=== PATIENT | female | born 1950 | race Caucasian/White ===

== ENCOUNTER 2024-01-27 06:09 | Inpatient (IN) | payer OTHER ==
[~2024-01-27] VITALS: Ht 160 cm; Wt 101.2 kg
[~2024-01-27 06:09] MED LIST: AMLO1TAB22 PO; ATOR10TA PO; PANT40TA2 PO
[2024-01-27] MEDS ORDERED: PROPOFOL 10 MG/ML 20 ML IV ONE (06:54)
[2024-01-27] MEDS ORDERED: ROCURONIUM 10MG/ML 10ML VIAL IV ONE (06:56)
[2024-01-27] MEDS: CELECOXIB 100 MG CAP PO ONE (07:10)
[2024-01-27] MEDS: ACETAMINOPHEN IV 1000 MG/100ML (10MG/ML) IV ONE (07:10)
[2024-01-27] MEDS: PREGABALIN CAPSULE 75 MG CAP PO ONE (07:10)
[2024-01-27] MEDS ORDERED: MIDAZOLAM HCL 2MG/2ML 2ml VIAL (1mg/ml) ONE (07:44)
[2024-01-27] MEDS ORDERED: ONDANSETRON HCL 4 MG/2 ML VIAL IV ONE (07:45)
[2024-01-27] MEDS ORDERED: NALOXONE HCL 0.4 MG/ML VIAL IV PRN (07:45)
[2024-01-27] MEDS ORDERED: MORPHINE SULFATE 4 MG/ML SYR/VIAL IV PRN ×2 (07:45)
[2024-01-27] MEDS ORDERED: ePHEDrine SULFATE 50 MG/ML AMP IV PRN (07:45)
[2024-01-27] MEDS: BUPIVACAINE 0.25% INJ 50ML VIAL ONE (07:57)
[2024-01-27] MEDS: VANCOMYCIN HCL 1000 MG VL ONE (07:57)
[2024-01-27] MEDS: MORPHINE SULF PF 5 MG/10 ML VIAL ONE (07:57)
[2024-01-27] MEDS: KETOROLAC TROMETH 30 MG/ML 1ML VIAL ONE (07:57)
[2024-01-27] MEDS ORDERED: LIDOCAINE HCL 100 MG/5ML (2%) SYRG INJ IV ONE (08:06)
[2024-01-27] MEDS: CEFEPIME 1GM/ 50ML 50 ML IV ONE (08:20)
[2024-01-27] MEDS: ceFAZolin 2 GM/D5W100ml 100 ML IV ONE (08:30)
[2024-01-27] MEDS ORDERED: HYDROmorphone HCL 2 MG/ML VL/or syr ONE (08:30)
[2024-01-27] MEDS: TRANEXAMIC ACID 20 ML ONE (08:35)
[2024-01-27] MEDS ORDERED: DexAMETHasone SOD PHOS 10MG/1ML VIAL INJ ONE (08:45)
[2024-01-27] MEDS ORDERED: SUGAMMADEX 200mg/2ml Vial (100MG/ML) IV ONE ×2 (08:45→09:41)
[2024-01-27] MEDS ORDERED: KETOROLAC TROMETH 30 MG/ML 1ML VIAL ONE (08:45)
[2024-01-27] MEDS ORDERED: ONDANSETRON HCL 4 MG/2 ML VIAL ONE (08:45)
[2024-01-27] MEDS ORDERED: HYDROmorphone HCL 2 MG/ML VL/or syr IV PRN (09:30)
[2024-01-27] MEDS ORDERED: NITROGLYCERIN 0.4 MG SL TAB SL PRN (09:30)
[2024-01-27] MEDS ORDERED: LACTATED RINGER'S 1,000 ML IV SCH (09:30)
[2024-01-27] MEDS ORDERED: ONDANSETRON HCL 4 MG/2 ML VIAL IV PRN (09:30)
[2024-01-27] MEDS ORDERED: MORPHINE SULFATE INJ 2 MG/ml SYRG IV PRN (09:30)
[2024-01-27] MEDS ORDERED: ceFAZolin 1GM/50ML 50 ML IV SCH (09:30)
[2024-01-27] MEDS: DOCUSATE SOD 100 MG CAP PO SCH (10:00)
[2024-01-27] MEDS ORDERED: PATIENTS OWN MEDICATION (Atorvastatin Calcium (Lipitor) 10 MG) PO SCH (10:00)
[2024-01-27] MEDS ORDERED: CEFEPIME 1GM/ 50ML 50 ML IV SCH (10:00)
[2024-01-27] MEDS: ROPIVACAINE 0.5% (5MG/ML) 20ML AMPULE IJ ONE (11:12)
[2024-01-27] MEDS: SODIUM CHLOR 0.9% PF (SALINE LOCK) 10ML VIAL/SYR IV SCH (14:00)
[2024-01-27] MEDS: PANTOPRAZOLE 40 MG TAB PO SCH (17:22)
[2024-01-27] MEDS: amLODIPine BESYLATE 5 MG TAB PO SCH (17:23)
[2024-01-27 17:25] VITALS: BP 98/60; PULSE 73; RESP 16; TEMP 97.6; O2SAT 95
[2024-01-27] MEDS: ceFAZolin 1GM/50ML 50 ML IV SCH (17:55)
[2024-01-27 18:04] VITALS: BP 98/60; PULSE 73; RESP 16; TEMP 96.7; O2SAT 95
[2024-01-27 20:00] VITALS: RESP 18
[2024-01-27] MEDS: ATORVASTATIN 20 MG TAB PO SCH (20:48)
[2024-01-27 22:00] VITALS: BP 101/48; PULSE 84; RESP 18; TEMP 97.4; O2SAT 92
[2024-01-28] VITALS (8 sets, daily range): BP systolic 92–116; BP diastolic 41–61; PULSE 85–100; RESP 15–18; TEMP 97.5–98.1; O2SAT 91–95
[2024-01-28 07:51] LABS: Hemoglobin 11.9 g/dL (12.2-16.2)
[2024-01-28 08:12] LABS: Alanine Aminotransferase 19 U/L (7-40); Albumin 3.6 g/dL (3.2-4.8); Alkaline Phosphatase 77 U/L (46-116); Anion Gap 6 (5-15); Aspartate Aminotransferase 23 U/L (13-40); BUN/Creatinine Ratio 13.6 (10.0-20.0); Blood Urea Nitrogen 11 mg/dL (9-23); Calcium 9.8 mg/dL (8.7-10.4); Carbon Dioxide 24 mmol/L (20-31); Chloride 106 mmol/L (98-107); Glucose 132 mg/dL (74-106); Potassium 4.8 mmol/L (3.5-5.1); Sodium 136 mmol/L (136-145)
[2024-01-28 08:13] LABS: Bilirubin, Total 0.3 mg/dL (0.2-1.0); Total Protein 6.1 g/dL (5.7-8.2)
[2024-01-28] MEDS: OXYCODONE W/ ACETAMINOPHEN 5/325MG TABLET PO PRN (09:16)
[2024-01-28] MEDS ORDERED: ENOXAPARIN SOD 40 MG/0.4 ML SYRINGE SC SCH (10:00)
[2024-01-29] VITALS (7 sets, daily range): BP systolic 95–104; BP diastolic 44–54; PULSE 66–95; RESP 18–20; TEMP 36.8; O2SAT 91–95
[2024-01-29 05:31] LABS: Hematocrit 30.9 % (36.0-46.0); Hemoglobin 10.7 g/dL (12.2-16.2)
== END 2024-01-29 16:40 | disposition home health service (06) | DRG 470 ==
LOC: SUR 06:09 → OVERFLOW 08:25 → WEST WING 16:26
PROVIDERS: ADMIT Orthopaedic Surgery Adult Reconstructive Orthopaedic Surgery; ATTEND Orthopaedic Surgery Adult Reconstructive Orthopaedic Surgery
PROC: 0SR906A Replacement of Right Hip Joint with Oxidized Zirconium on Polyethylene Synthetic Substitute, Uncemented, Open Approach (ICD-10-PCS; principal; 2024-01-27 07:57)
DX: M16.11 Unilateral primary osteoarthritis, right hip (principal); Z88.5 Allergy status to narcotic agent
CPT/HCPCS: 36415; 72170; 73502; 80053; 85014; 85018; 86850; 86900; 86901; 97110; 97116; 97163; 97530; G0378; J0131; J1100; J1885; J2250; J2405; J2704; J3490